=== PATIENT | male | born 1980 | race Caucasian/White ===

== ENCOUNTER 2018-12-20 13:03 | Emergency (ER) | payer OTHER ==
[2018-12-20 13:50] VITALS: BP 125/71; PULSE 73; RESP 18; TEMP 98.3
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
--- NOTE | 2018-12-20 14:52 | XR ---
EXAMINATION TYPE: XR knee 4V RT DATE OF EXAM: 12/20/2018 COMPARISON: NONE HISTORY: Pain TECHNIQUE: 4 views FINDINGS: I see no fracture nor dislocation. There is a small knee joint effusion. Joint spaces are n ormal. IMPRESSION: Small joint effusion. No fracture seen.
[2018-12-20] MEDS ORDERED: IBUPROFEN 600 MG TAB PO STA (15:56)
[2018-12-20 15:57] LABS: Amphetamine Screen,Urine Not Detected (NotDetected); Barbiturate Screen,Urine Not Detected (NotDetected); Benzodiazepines Screen,Urine Not Detected (NotDetected); Cocaine Screen,Urine Not Detected (NotDetected); Methadone Screen, Urine Not Detected (NotDetected); Opiate Screen,Urine Not Detected (NotDetected); Oxycodone Screen, Urine Not Detected (NotDetected); Phencyclidine Screen,Urine Not Detected (NotDetected); Tricyclic Antidepressant,Urine Not Detected (NotDetected); Urn Cannabinoid Scrn Detected (NotDetected)
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
== END 2018-12-20 18:30 | disposition home or self-care (01) ==
LOC: EC 13:03
DX: M25.561 Pain in right knee (principal); F32.9 Major depressive disorder, single episode, unspecified; R11.2 Nausea with vomiting, unspecified; M25.461 Effusion, right knee; F17.200 Nicotine dependence, unspecified, uncomplicated; Y04.0XXA Assault by unarmed brawl or fight, initial encounter; Y92.410 Unspecified street and highway as the place of occurrence of the external cause
CPT/HCPCS: 70450; 72125; 80306; 82075; 99285

== ENCOUNTER 2021-07-02 15:12 | Emergency (ER) | payer OTHER ==
[2021-07-02 16:11] VITALS: BP 131/77; PULSE 84; RESP 12; TEMP 98.1
[2021-07-02] MEDS ORDERED: DEXAMETHASONE SOD PHOSPHATE 10 MG/ML 1 ML VIAL IM STA (16:25)
--- NOTE | 2021-07-02 16:25 | ED ---
General Adult HPI - General Chief complaint: ENT Stated complaint: Med stuck in throat Time Seen by Provider: 07/02/21 16:15 Source: patient, RN notes reviewed, old records reviewed Mode of arrival: ambulatory Limitations: no limitations - History of Present Illness Initial comments: This is a well-appearing 40-year-old male, in no acute distress that presents to the emergency room with complaints of swallowing a 1/4 of a Lamictal pill yesterday that's feels like it is stuck in his throat. Patient states that he has tried warm drinks, cold drinks and even tried to force vomiting and is unable to get the pill out. States he feels like he can actually feel the pill from the outside when he squeezes around his Doug's apple. He is able to tolerate his own secretions. No difficulty breathing. Voice is clear. He denies any previous history of difficulty swallowing. -: days(s) (2) Location: mouth (throat) Severity scale (1-10): 6 Quality: sharp Consistency: constant Improves with: none Worsens with: other (swallowing) Associated Symptoms: denies other symptoms Treatments Prior to Arrival: none - Related Data Previous Rx's Medication Instructions Recorded Amoxicillin 250 mg PO Q8H 7 Days cap 05/22/16 Amoxicillin 500 mg PO TID 7 Days cap 05/22/16 Allergies Allergy/AdvReac Type Severity Reaction Status Date / Time acetaminophen [From Vicodin] Allergy Itching Verified 07/02/21 15:25 hydrocodone [From Vicodin] Allergy Itching Verified 07/02/21 15:25 Review of Systems ROS Statement: Those systems with pertinent positive or pertinent negative responses have been documented in the HPI. ROS Other: All systems not noted in ROS Statement are negative. Past Medical History Past Medical History: No Reported History History of Any Multi-Drug Resistant Organisms: None Reported Past Surgical History: Back Surgery Past Psychological History: Anxiety, Bipolar, Depression Smoking Status: Current every day smoker Past Alcohol Use History: Rare Past Drug Use History: Marijuana General Exam Limitations: no limitations General appearance: alert, in no apparent distress Head exam: Present: atraumatic, normocephalic, normal inspection Eye exam: Present: normal appearance, EOMI. Absent: scleral icterus, conjunctival injection ENT exam: Present: normal exam, normal oropharynx Expanded Mouth exam: Present: normal external inspection, tongue normal, tongue elevation. Absent: drooling, trismus, muffled voice Throat exam: normal inspection, other (approx 3mm growth right side of uvula). negative: tonsillar erythema, tonsillomegaly, tonsillar exudate, R peritonsillar mass, L peritonsillar mass Neck exam: Present: normal inspection. Absent: tenderness, meningismus, lymphadenopathy Respiratory exam: Present: normal lung sounds bilaterally. Absent: respiratory distress, wheezes, rales, rhonchi, stridor Cardiovascular Exam: Present: regular rate, normal rhythm, normal heart sounds. Absent: systolic murmur, diastolic murmur, rubs, gallop, clicks Extremities exam: Present: normal inspection, full ROM, normal capillary refill. Absent: tenderness, pedal edema, joint swelling, calf tenderness Neurological exam: Present: alert, oriented X3 Psychiatric exam: Present: normal affect, normal mood Skin exam: Present: warm, dry, intact, normal color. Absent: rash, cyanosis, diaphoretic Course Vital Signs 07/02/21 07/02/21 15:21 16:09 Temperature 98.7 F 98.1 F Pulse Rate 75 84 Respiratory 20 12 Rate Blood Pressure 124/73 131/77 O2 Sat by Pulse 100 97 Oximetry Medical Decision Making - Medical Decision Making Well-appearing 40-year-old male in no acute distress presents with complaints of feeling as though a pill fragment is stuck in his throat. Patient is able to tolerate fluids, no difficulty breathing. X-ray soft tissue neck shows no evidence of foreign body. This is likely an esophageal irritation. Patient was offered viscous lidocaine and declined. He was given Decadron in the emergency room. He was instructed to follow-up with his primary care doctor and given a referral for Dr. Nicolas for possible endoscopy. Patient was directed to try taking his medications with applesauce or pudding. Return to the emergency room with any worsening symptoms or inability to swallow. Case discussed with Dr. Mora. Disposition Clinical Impression: Throat pain in adult Disposition: HOME SELF-CARE Condition: Good Instructions (If sedation given, give patient instructions): Strep Throat (ED) Additional Instructions: Increase your fluid intake and take Motrin as needed for any pain. Follow-up with gastroenterology, Dr. Nicolas as referred for possible endoscopy and your primary care doctor. Return to the emergency room with any new or concerning symptoms. Is patient prescribed a controlled substance at d/c from ED?: No Referrals: Eris Romeo MD [Primary Care Provider] - 1-2 days Sarita Nicolas MD [STAFF PHYSICIAN] - 1-2 days Time of Disposition: 18:11
--- NOTE | 2021-07-02 17:45 | XR ---
EXAMINATION TYPE: XR soft tissue neck DATE OF EXAM: 07/02/2021 COMPARISON: NONE HISTORY: Foreign body sensation TECHNIQUE: 2 view FINDINGS: Subglottic trachea appears normal. Epiglottis is normal. The cervical vertebra have fairly normal alignment. There is some minimal anterior spurring at C5-6. Prevertebral soft tissues are inta ct. Subglottic trachea appears normal. IMPRESSION: Negative cervical soft tissue exam. No evidence of a foreign body.
[2021-07-02] MEDS ORDERED: LIDOCAINE VISCOUS 2% 15 ML CUP MUCOUS MEM ONE (18:01)
== END 2021-07-02 18:27 | disposition home or self-care (01) ==
LOC: EC 15:12
DX: R07.0 Pain in throat (principal); F17.200 Nicotine dependence, unspecified, uncomplicated; Z88.6 Allergy status to analgesic agent; Z88.5 Allergy status to narcotic agent
CPT/HCPCS: 99283; 96372; 70360; J1100

== ENCOUNTER → 2022-03-04 | Outpatient (CLI) | payer BC ==
[2022-03-05 10:25] LABS: HIV 2 AB Non-Reactive (Non-Reactive); HIV AB P24 Non-Reactive (Non-Reactive); HIV P24 AG Non-Reactive (Non-Reactive)
== END | disposition home or self-care (01) ==
LOC: LABWHC1 15:48
PROVIDERS: ATTEND Family Medicine
DX: B20 Human immunodeficiency virus [HIV] disease (principal)
CPT/HCPCS: 36415; 87390

== ENCOUNTER → 2022-06-20 | Outpatient (CLI) | payer BC ==
[2022-06-21 20:31] LABS: HIV 2 AB Non-Reactive (Non-Reactive); HIV AB P24 Non-Reactive (Non-Reactive); HIV P24 AG Non-Reactive (Non-Reactive)
== END | disposition home or self-care (01) ==
LOC: LABWHC1 09:54
PROVIDERS: ATTEND Family Medicine
DX: R10.9 Unspecified abdominal pain (principal)
CPT/HCPCS: 36415; 87390

== ENCOUNTER → 2023-04-21 | Outpatient (CLI) | payer OTHER ==
[2023-04-22 02:51] LABS: Basophils # (A) 0.09 X 10*3/uL (0.00-0.10); Basophils % (A) 0.8 %; Eosinophils # (A) 0.05 X 10*3/uL (0.04-0.35); Eosinophils % (A) 0.5 %; HCT 49.2 % (39.6-50.0); HGB 16.4 g/dL (13.0-17.0); Lymphocytes # (A) 2.75 X 10*3/uL (0.90-5.00); Lymphocytes % (A) 25.1 %; MCH 32.1 pg (27.0-32.0); MCHC 33.3 g/dL (32.0-37.0); MCV 96.3 FL (80.0-97.0); Monocytes # (A) 0.58 X 10*3/uL (0.20-1.00); Monocytes % (A) 5.3 %; NRBC Per 100 WBC 0 X 10*3/uL (0.00-0.01); Neutrophils # (A) 7.43 X 10*3/uL (1.80-7.70); Neutrophils % (A) 67.9 %; Platelet Count 334 X 10*3/uL (140-440); RBC 5.11 X 10*6/uL (4.40-5.60); WBC 10.94 X 10*3/uL (4.50-10.00)
[2023-04-22 03:03] LABS: ALT 20 U/L (10-49); AST 18 U/L (14-35); Albumin 4.7 g/dL (3.8-4.9); Albumin/Globulin Ratio 1.68 Ratio (1.60-3.17); Alkaline Phosphatase 84 U/L (41-126); BUN/Creat Ratio 17.62 Ratio (12.00-20.00); Blood Urea Nitrogen 14.1 mg/dL (9.0-27.0); Calcium 9.7 mg/dL (8.7-10.3); Carbon Dioxide 23.3 mmol/L (21.6-31.8); Chloride 102 mmol/L (96-109); Chol/HDL Ratio 3.88 Ratio; Globulin 2.8 g/dL (1.6-3.3); Glucose 79 mg/dL (70-110); LDL Cholesterol,Calculated 114.2 mg/dL (0.0-131.0); Potassium 4.2 mmol/L (3.5-5.5); Sodium 138 mmol/L (135-145); Total Bilirubin 0.3 mg/dL (0.3-1.2); Total Protein 7.5 g/dL (6.2-8.2)
== END | disposition home or self-care (01) ==
LOC: LABWHC1 13:23
PROVIDERS: ATTEND Family Medicine
DX: I10 Essential (primary) hypertension (principal); Z79.899 Other long term (current) drug therapy
CPT/HCPCS: 36415; 80053; 80061; 82607; 82746; 83036; 85025

== ENCOUNTER 2023-09-22 11:41 | Day surgery (SDC) | payer OTHER ==
[2023-09-19 16:26] VITALS: BMI 24.7
[~2023-09-22 11:41] MED LIST: LACTATED RINGERS 1,000 ML IV SCH; LIDOCAINE 1% (10MG/ML) FOR IV START INTRADERMA PRN
[2023-09-22] MEDS: LACTATED RINGERS 1,000 ML IV ONE (12:15)
[2023-09-22 12:54] VITALS: RESP 16; TEMP 98
[2023-09-22] MEDS ORDERED: LIDOCAINE 1% INJ 10MG/ML (20 ML MDV) ONE (13:27)
[2023-09-22] MEDS ORDERED: PROPOFOL 10 MG/ML 20 ML VIAL IV ONE (13:27)
--- NOTE | 2023-09-22 13:46 | P.OP ---
Date of Procedure: 09/22/23 Preoperative Diagnosis: proctitis Postoperative Diagnosis: internal and external hemorrhoids Rectal biopsy pathology pending Procedure(s) Performed: colonoscopy Anesthesia: MAC Surgeon: Caesar Riley Pathology: other (rectum) Condition: stable Disposition: PACU Description of Procedure: the patient's placed on the endoscopy table in the lateral position. He received IV sedation. Digital rectal exam performed. There is evidence of internal and external hemorrhoids. Possible rectal prolapse. The flexible colonoscope was then placed patient anus and passed throughout the colon. The scope could not be advanced to the right colon due to poor colonic prep. The scope was withdrawn. The visualized transverse colon, descending colon, sigmoid colon appeared normal. Scope was brought back the rectum and there is some minimal inflammation. A random biopsy was performed. Scope was brought to anus and internal and external hemorrhoids were noted.
[2023-09-22 14:26] VITALS: BP 115/79; PULSE 60
== END 2023-09-22 14:25 | disposition home or self-care (01) ==
LOC: ORWHC2ENDO 11:41
PROVIDERS: ATTEND Surgery
DX: K62.89 Other specified diseases of anus and rectum (principal); K64.8 Other hemorrhoids; K64.4 Residual hemorrhoidal skin tags; I10 Essential (primary) hypertension; J45.909 Unspecified asthma, uncomplicated; F31.9 Bipolar disorder, unspecified; F41.9 Anxiety disorder, unspecified; F17.200 Nicotine dependence, unspecified, uncomplicated; K92.2 Gastrointestinal hemorrhage, unspecified; Z88.7 Allergy status to serum and vaccine; Z79.899 Other long term (current) drug therapy
CPT/HCPCS: 88305; 45380; J2001; J2704; 45378

== ENCOUNTER → 2024-05-07 | Outpatient (CLI) | payer OTHER ==
[2024-05-07 15:45] LABS: HCT 44.5 % (39.6-50.0); HGB 14.6 g/dL (13.0-17.0); MCH 32.3 pg (27.0-32.0); MCHC 32.8 g/dL (32.0-37.0); MCV 98.5 FL (80.0-97.0); Mean Platelet Volume 9.6 FL (9.5-12.2); NRBC Per 100 WBC 0 X 10*3/uL (0.00-0.01); Platelet Count 313 X 10*3/uL (140-440); RBC 4.52 X 10*6/uL (4.40-5.60); RDW 12.8 % (11.5-14.5); WBC 12.41 X 10*3/uL (4.50-10.00)
[2024-05-07 15:57] LABS: ALT 19 U/L (10-49); AST 21 U/L (14-35); Albumin 4.3 g/dL (3.8-4.9); Albumin/Globulin Ratio 1.65 Ratio (1.60-3.17); Alkaline Phosphatase 76 U/L (41-126); BUN/Creat Ratio 10.38 Ratio (12.00-20.00); Blood Urea Nitrogen 8.3 mg/dL (9.0-27.0); Calcium 9.5 mg/dL (8.7-10.3); Carbon Dioxide 27.3 mmol/L (21.6-31.8); Chloride 103 mmol/L (96-109); Chol/HDL Ratio 3.35 Ratio; Globulin 2.6 g/dL (1.6-3.3); Glucose 92 mg/dL (70-110); LDL Cholesterol,Calculated 104.7 mg/dL (0.0-131.0); Potassium 4.6 mmol/L (3.5-5.5); Sodium 142 mmol/L (135-145); Total Bilirubin 0.3 mg/dL (0.3-1.2); Total Protein 6.9 g/dL (6.2-8.2); VLDL Calculation 16.58 mg/dL (5.00-40.00)
[2024-05-07 17:25] LABS: HIV 2 AB Non-Reactive (Non-Reactive); HIV AB P24 Non-Reactive (Non-Reactive); HIV P24 AG Non-Reactive (Non-Reactive)
== END | disposition home or self-care (01) ==
LOC: LABWHC1 09:54
PROVIDERS: ATTEND Family Medicine
DX: F33.1 Major depressive disorder, recurrent, moderate (principal); N40.0 Benign prostatic hyperplasia without lower urinary tract symptoms; B20 Human immunodeficiency virus [HIV] disease; Z79.899 Other long term (current) drug therapy
CPT/HCPCS: 36415; 80053; 80061; 83036; 84403; 84443; 85027; 87390